=== PATIENT | male | born 1950 | race Caucasian/White ===

== ENCOUNTER 2017-02-18 12:08 | Inpatient (IN) | payer BC, OTHER ==
[2017-02-06 14:39] LABS: BASOPHILS 0.4 %; BASOPHILS ABSOLUTE 0.04 10/3/uL (0.0-0.16); EOSINOPHILS 2.4 %; EOSINOPHILS ABSOLUTE 0.24 10/3/uL (0.0-0.53); HEMOGLOBIN 13.3 g/dL (13.6-17.8); IMMATURE GRANULOCYTES 0.3 %; IMMATURE GRANULOCYTES ABSOLUTE 0.03 10/3/uL (0.0-0.11); LYMPHOCYTES 17.6 %; LYMPHOCYTES ABSOLUTE 1.74 10/3/uL (0.67-4.30); MEAN CORPUS HGB CONC 34.3 g/dL (32.0-36.0); MEAN CORPUSCULAR HEMOGLOB 29.4 pg (26.0-34.0); MEAN CORPUSCULAR VOLUME 85.7 fL (80-100); MEAN PLATELET VOLUME 10.1 fL (9.2-13.0); MONOCYTES 9.8 %; MONOCYTES ABSOLUTE 0.97 10/3/uL (0.21-1.20); NEUTROPHILS 69.5 %; NEUTROPHILS ABSOLUTE 6.85 10/3/uL (2.02-8.40); PLATELET COUNT 251 10/3/uL (150-400); RBC DISTRIBUTION WIDTH 13.7 % (12.0-16.0); RED CELL COUNT 4.53 10/6/uL (4.7-6.1); WHITE BLOOD CELLS 9.9 10/3/uL (4.5-10.5)
[2017-02-06 14:40] LABS: HEMATOCRIT 38.8 % (40.0-51.0); MANUAL DIFF NO %
[2017-02-06 14:46] LABS: ASCORBIC ACID (UR NOT ORDER) NEG (NEG); BILIRUBIN, URINE NEGATIVE (NEG); KETONE, URINE NEGATIVE (NEG); LEUKOCYTE ESTERASE(NOT OR NEG (NEG); PARTIAL THROMBO TIME 27.3 SEC (22.5-37.2); PROTIME (NOT ORD) 13.5 SEC (12.0-14.5); WBC (NOT ORDERED) (RFLEX) < 1 (0-5)
[2017-02-06 14:59] LABS: A/G RATIO 1.3 (0.7-1.9); ALBUMIN 3.8 G/DL (3.5-5.0); ALKALINE PHOSPHATASE 75 U/L (45-117); BUN (BLOOD UREA NITROGEN) 11 MG/DL (6-23); CALCIUM, SERUM 9.1 MG/DL (8.5-10.4); CHLORIDE, SERUM 103 MMOL/L (96-112); CO2 (CARBON DIOXIDE) 27 MMOL/L (24-34); CREATININE 0.76 MG/DL (0.70-1.30); GFR AFRICAN AMERICAN 109 ML/MIN (>=60); GFR NON AFRICAN AMERICAN 94 ML/MIN (>=60); GLUCOSE, SERUM 111 MG/DL (60-99); POTASSIUM, SERUM 4.3 MMOL/L (3.5-5.3); SGOT(AST) 9 U/L (5-40); SGPT(ALT) 16 U/L (5-65); SODIUM, SERUM 139 MMOL/L (135-148); TOTAL BILIRUBIN 0.4 MG/DL (0-1.2); TOTAL PROTEIN 6.8 G/DL (6.0-8.5)
--- NOTE | ~2017-02-18 | OP ---
Record Of Operation [facility] [address] [place]. [address] NAME: FARZANA HAAS : 48 STATUS : ADM IN PAT#: [id number] AGE: 67 ADM/REG DATE : 02/18/17 MR#: [id number] REPORT SERV DATE: 02/19/17 DICTATED BY: RON SANCHEZ DATE: 02/18/17 REPORT STATUS : Draft TRANSCRIBED BY: MODL DATE: 02/18/17 DATE OF PROCEDURE: 02/18/2017 PREOPERATIVE DIAGNOSIS: Left knee arthritis with large proximal tibial cystic structure. POSTOPERATIVE DIAGNOSIS: Left knee arthritis with large proximal tibial cystic structure. PROCEDURE PERFORMED: Left total knee arthroplasty with tibial cyst excisional biopsy in a complex knee. SURGEON: Ron Sanchez M.D. PROCESS MANAGER: Christine Bhatia. ANESTHESIA: General with adductor block and local infusion. PROCEDURE IN DETAIL: The patient is clearly identified, and after obtaining informed consent, he is brought to the operating room at [facility] where he is induced under general anesthesia. His left lower extremity prepped and draped in the usual manner. This concluded, after an appropriate time-out procedure is performed, DUSTY exsanguination is performed, and tourniquet is elevated to 350 mmHg and successfully tested, at which point, anterior approach of the knee is performed. Skin is divided, fascial planes are elevated, parapatellar medial approach is then formed, and there is some fluid in the knee which is removed carefully excising soft tissues and removing a significant synovitis. The patella is everted, calipered planed with a size 35 patella with the size and type is reproduced. Given the patient's tibial issues, we choose the Sigma System by [employer] such that its tibial stem can be utilized and perhaps even a sleeve, and at this point, the knee is then carefully flexed and osteophytes around the distal femur removed. The femoral canal is entered and vented, at which point, the distal cutting jig is applied and the distal femoral cut is made carefully exposing the proximal tibia. The intramedullary guide is utilized. We first reamed nicely up to approximately 18 mm, and during this process, a cystic gelatinatious fluids removed. There are some bone fragments within, Pathology is called to assess which returned gelatinatious mucinous material without evidence of atypia, although permanent section will be pending, and at this point, then we performed the proximal tibial cut. A spacer block looks excellent. The femur is then prepared for size 4 and then the tibia is assessed more so, and at this point, the cystic structures are more closely opened after sleeves are then utilized preparing the tibia. The lining of this apparent cyst is all removed and sent to pathology. Nothing appears atypical, otherwise, and it is felt that a 16 x 115 stem would bypass the area quite nicely as the tibia is prepared as well as a 45 size sleeve to give good purchase. This concluded, trialing reveals excellent extension, flexion, and no instability or evidence of pathology, at which point, the trials are all removed. The permanent implants are uneventfully placed and cement is allowed to harden. The permanent 10 mm polyethylene is applied after having fully assessed the joint, and with excellent range of motion and stability and patellofemoral tracking, there area is copiously irrigated. The tourniquet is deflated during the curing of the cement and tranexamic acid is utilized as well as local infusion. However, at this point, all looking quite good. Record Of Operation [facility] [address] [place]. [address] NAME: FARZANA HAAS : 48 STATUS : ADM IN PAT#: [id number] AGE: 67 ADM/REG DATE : 02/18/17 MR#: [id number] REPORT SERV DATE: 02/19/17 DICTATED BY: RON SANCHEZ DATE: 02/18/17 REPORT STATUS : Draft TRANSCRIBED BY: MODL DATE: 02/18/17 There area is copiously irrigated and carefully closed in layers over Hemovac drain. This concluded, the leg is then carefully cleansed and dressed and the patient is allowed to awaken and is transferred to the recovery room in stable condition having tolerated the procedure well. ESTIMATED BLOOD LOSS: 100 mL. FLUIDS: 1100 mL. TOURNIQUET TIME: 87 minutes. PATHOLOGY: Sent specimen. MICROBIOLOGY: None. COMPLICATIONS: None. SPONGE AND NEEDLE COUNTS: Reportedly correct. ANTIBIOTICS: Administered appropriately preoperatively and ordered to be discontinued within 23 hours. IMPLANTS: Sigma knee by [employer], femur size 4, patella size 41, tibia size 4 with a +45 sleeve and a 115 x 16 stem. HARDIK/NATIVIDAD Ron Sanchez M.D. / [id number] CC: Ron Sanchez M.D.
[~2017-02-18 12:08] MED LIST: ALLEGRA180 PO; ALOE VERA500 MG OR; ASAB PO; AVODART PO; CIP5 PO; COL-RITE; COZ50 PO; DSS PO; FLOMAX4 PO; FLONASE NAS; GLUCCHONDR PO; GLUCOPHAGE1000 MG PO; HUMALOGPEN SC; HYDROCHLOROT25 MG PO; JANUVIA100 MG PO; LEVEMFLXPN SC; LIPITOR20 PO; LOP25 PO; MOBIC15 MG PO; MOBIC7.5 PO; MULTIPLE VIT PO; MULTIVIT/MIN PO; MULTIVITAMI1 PO; MYRBETRIQ25 MG PO; NITROSTAT0.4 MG SL; NORCO1 TAB PO; NORV10 PO; NOVOLOG SC; NOVOLOGMIX SC; NOVOPENMIX SC; PLAVIX PO; STOOL SOFTEN100 MG PO; TOPXL25 PO; TRAZ50 PO; ZANTAC300 MG PO; ZESTORETIC1 TA1 PO; [UNRECOGNIZED DRUG - OTHER] PO
[2017-02-19 05:35] LABS: HEMATOCRIT 31.7 % (40.0-51.0); HEMOGLOBIN 10.9 g/dL (13.6-17.8)
[2017-02-19 05:46] LABS: BUN (BLOOD UREA NITROGEN) 18 MG/DL (6-23); CALCIUM, SERUM 8.4 MG/DL (8.5-10.4); CHLORIDE, SERUM 102 MMOL/L (96-112); CO2 (CARBON DIOXIDE) 26 MMOL/L (24-34); CREATININE 0.95 MG/DL (0.70-1.30); GFR AFRICAN AMERICAN 95 ML/MIN (>=60); GFR NON AFRICAN AMERICAN 82 ML/MIN (>=60); GLUCOSE, SERUM 253 MG/DL (60-99); INTERNATIONAL NORMAL RATI 1.1 UNITS (-); POTASSIUM, SERUM 4.3 MMOL/L (3.5-5.3); PROTIME (NOT ORD) 13.9 SEC (12.0-14.5); SODIUM, SERUM 140 MMOL/L (135-148)
[2017-02-19] MEDS ORDERED: LOVENOX40 SC (11:09)
[2017-02-19] MEDS ORDERED: OXYCOD PO (11:09)
== END 2017-02-19 13:59 | disposition home or self-care (01) | DRG 470 ==
LOC: SDC/OF 12:08 → PACU 17:22 → 3JRC 20:20
PROVIDERS: Orthopaedic Surgery
PROC: 3E0T3CZ (ICD-10-PCS; 2017-02-18)
PROC: 0SRD0J9 Replacement of Left Knee Joint with Synthetic Substitute, Cemented, Open Approach (ICD-10-PCS; principal; 2017-02-18 15:00)
DX: M17.12 Unilateral primary osteoarthritis, left knee (principal); I10 Essential (primary) hypertension; E11.9 Type 2 diabetes mellitus without complications; E78.5 Hyperlipidemia, unspecified; N40.0 Benign prostatic hyperplasia without lower urinary tract symptoms; K21.9 Gastro-esophageal reflux disease without esophagitis; Z79.899 Other long term (current) drug therapy; Z79.82 Long term (current) use of aspirin; Z79.4 Long term (current) use of insulin; Z79.84 Long term (current) use of oral hypoglycemic drugs; G47.33 Obstructive sleep apnea (adult) (pediatric); I25.10 Atherosclerotic heart disease of native coronary artery without angina pectoris; E66.9 Obesity, unspecified; Z68.34 Body mass index [BMI] 34.0-34.9, adult; Z87.891 Personal history of nicotine dependence
CPT/HCPCS: 36415; 71020; 73560-LT; 80048; 80053; 81001; 82962; 85014; 85018; 85025; 85610; 85730; 86850; 86900; 86901; 87641; 88305; 88307; 88311; 88331; 88332; 93005; 97110-GP; 97116-GP; 97161-GP; 97165-GO; A9270-GY; C1776; J0690; J1885; J2250; J2274; J2370; J2405; J2710; J2795; J3010